=== PATIENT | male | born 1965 ===

== ENCOUNTER 2020-03-10 06:31 | Day surgery (SDC) | payer BC ==
[~2020-03-10 06:31] MED LIST: Lactated Ringers 1,000 ML IV SCH
[2020-03-10] MEDS ORDERED: fentaNYL 100 MCG/2 ML SDV ONE (07:13)
[2020-03-10] MEDS ORDERED: Propofol 200 MG/20 ML SDV ONE (07:13)
[2020-03-10] MEDS ORDERED: Ondansetron 4 MG/2 ML SDV ONE (07:13)
[2020-03-10] MEDS ORDERED: Midazolam 1 MG/ML 2 ML SDV ONE (07:13)
[2020-03-10] MEDS ORDERED: Lidocaine 2% 5 ML SDV ONE (07:13)
[2020-03-10] MEDS ORDERED: Glycopyrrolate 0.2 MG/ML SDV ONE (07:13)
[2020-03-10] MEDS ORDERED: Ketorolac 30 MG/ML SDV ONE (07:13)
[2020-03-10] MEDS ORDERED: Bupivacaine 0.5% 10 ML SDV ONE (07:14)
--- NOTE | 2020-03-10 07:17 | PCM.PREANE ---
Preanesthetic Assessment - Anesthesia/Transfusion/Family Hx Anesthesia History: Prior Anesthesia Without Reaction Other Type of Anesthesia Reaction Comment: Denies any history of general anesthesia, just as used for Bunionectomies Transfusion History: No Prior Transfusion(s) - Review of Systems General: No Symptoms Pulmonary: No Symptoms Cardiovascular: No Symptoms Gastrointestinal: No Symptoms Neurological: No Symptoms Other: Reports: None - Physical Assessment NPO Status Date: 03/09/20 Vital Signs: Last Vital Signs Temp 97.9 F 03/10/20 06:40 Pulse 83 03/10/20 06:40 Resp 16 03/10/20 06:40 BP 131/91 H 03/10/20 06:40 Pulse Ox 93 L 03/10/20 06:40 Height: 6 ft 1 in Weight: 113.852 kg ASA Class: 2 Mental Status: Alert & Oriented x3 Airway Class: Mallampati = 2 Dentition: Reports: Normal Dentition ROM/Head Extension: Full Lungs: Clear to Auscultation, Normal Respiratory Effort Cardiovascular: Regular Rate, Regular Rhythm - Allergies Allergies/Adverse Reactions: Allergies Allergy/AdvReac Type Severity Reaction Status Date / Time No Known Allergies Allergy Verified 03/04/20 12:39 - Blood Blood Available: No - Anesthesia Plan Pre-Op Medication Ordered: None - Acknowledgements Anesthesia Type Planned: General Anesthesia Pt an Appropriate Candidate for the Planned Anesthesia: Yes Alternatives and Risks of Anesthesia Discussed w Pt/Guardian: Yes Pt/Guardian Understands and Agrees with Anesthesia Plan: Yes Additional Comments: PMH: dm2, htn, non smoker PLAN: ga/lma PreAnesthesia Questionnaire Cardiovascular History: Reports: High Cholesterol, Hypertension Gastrointestinal History: Reports: Diverticulosis, GERD Genitourinary History: Reports: Renal Calculus Other Genitourinary History: hx of passing 1 stone Psychiatric History: Reports: Depression Endocrine/Metabolic History: Reports: Diabetes, Type II, IDDM, Obesity/BMI 30+ - Past Surgical History Head Surgeries/Procedures: Reports: None GI Surgical History: Reports: Cholecystectomy, Colonoscopy Musculoskeletal Surgical History: Reports: Other (See Below) Other Musculoskeletal Surgeries/Procedures:: bilateral bunionectomies (has pins) - SUBSTANCE USE Smoking Status *Q: Never Smoker Tobacco Use Within Last Twelve Months: No Days Per Week of Alcohol Use: 1 Recreational Drug Use History: No - HOME MEDS Home Medications: Home Meds Citalopram [Citalopram HBr] 30 mg PO DAILY 05/07/14 [History] Testosterone Cypionate [Depo-Testosterone] 200 mg IM WEEKLY 05/07/14 [History] atorvaSTATin Calcium [Atorvastatin Calcium] 20 mg PO DAILY 05/07/14 [History] Anastrozole [Arimidex] 1 mg PO ASDIRECTED 03/04/20 [History] Empagliflozin [Jardiance] 25 mg PO DAILY 03/04/20 [History] Fenofibrate Nanocrystallized [Fenofibrate] 200 mg PO DAILY 03/04/20 [History] Losartan Potassium 75 mg PO QAM 03/04/20 [History] Omeprazole 20 mg PO ACBREAKFAST 03/04/20 [History] Ozempic 0.25 mg SQ WEEKLY 03/04/20 [History] metFORMIN HCl [Metformin HCl] 500 mg PO BIDMEALS 03/04/20 [History] - CURRENT (IN HOUSE) MEDS Current Meds: Current Medications Lactated Ringer's (Ringers, Lactated) 1,000 mls @ 100 mls/hr IV ASDIRECTED [facility] Last Admin: 03/10/20 07:03 Dose: 100 mls/hr Documented by: Cefazolin Sodium/Dextrose 2 gm (/ Premix) 50 mls @ 100 mls/hr IV [facility]
[2020-03-10] MEDS ORDERED: Bupivacaine 0.25% 10 ML SDV ONE (07:47)
[2020-03-10] MEDS ORDERED: ceFAZolin 2 GM in Premix Bag 1 BAG IV SCH (08:00)
--- NOTE | 2020-03-10 09:00 | PCM.OPNOTE ---
- General Post-Op/Procedure Note Date of Surgery/Procedure: 03/10/20 Operative Procedure(s): Right carpal tunnel release Findings: Right median nerve compression Pre Op Diagnosis: Right carpal tunnel syndrome Post-Op Diagnosis: Right carpal tunnel syndrome Anesthesia Technique: General LMA Primary Surgeon: Ousmane Brennan Wire Mesh Knitter: Mackenzie Hogue Reason Wire Mesh Knitter Was Necessary: Retraction Pathology: None EBL in mLs: 5 Complications: None Free Text/Narrative:: Patient has EMG documented right carpal tunnel syndrome and has failed non- operative management. We discussed the risks and benefits of carpal tunnel release and patient elected to proceed with surgery. All questions were answered. Patient was taken to the OR. After adequate general anesthesia, the patient remained in a supine position. A tourniquet was placed on the right rpoximal upper arm. The right upper extremity and hand were prepped and draped in the usual sterile manner. The hand elevated and the tourniquet inflated. The cardinal line was marked. A palmar incision extending from the wrist crease to the cardinal line was made with a scalpel. Subcutaneous tissue was incised with electrocautery. The palmar fascia was identified and a small incision was made with scissors. A freer elevator was placed under the transverse carpal ligament and the ligament incised with a scalpel under direct visualization. The median nerve was protected by the freer elevator. the palmar fascia was opened to the cardinal line. The fascia proximal to the wrist crease was isolated by spreading scissors above and below the fascia and the fascia was opened by pushing the scissors through the isolated fascia. The median nerve was completely decompressed. The wound was irrigated. Skin was closed with interrupted 3-0 horizontal mattress sutures. A sterile dressing was applied. Patient was accompanied to the PACU in stable condition. Pain medication: ibuprofen and acetaminophen VTE prophylaxis not indicated Prophylactic antibiotics not indicated post-operatively Restrictions: Non weight bearing right hand for 6 weeks, elevate hand, keep incision clean and dry.
--- NOTE | 2020-03-10 09:38 | PCM.POSTAN ---
POST ANESTHESIA ASSESSMENT - MENTAL STATUS Mental Status: Alert, Oriented - VITAL SIGNS Vital Signs: Last Vital Signs Temp 36.6 C 03/10/20 08:51 Pulse 82 03/10/20 09:32 Resp 11 L 03/10/20 09:32 BP 125/81 03/10/20 09:32 Pulse Ox 93 L 03/10/20 09:32 - RESPIRATORY Respiratory Status: Respiratory Rate WNL, Airway Patent, O2 Saturation Stable - CARDIOVASCULAR CV Status: Pulse Rate WNL, Blood Pressure Stable - GASTROINTESTINAL GI Status: No Symptoms - POST OP HYDRATION Hydration Status: Adequate & Stable
--- NOTE | 2020-03-10 10:29 | PCM48HPAN ---
Post Anesthesia Note - EVALUATION WITHIN 48HRS OF ANESTHETIC Vital Signs in Normal Range: Yes Patient Participated in Evaluation: Yes Respiratory Function Stable: Yes Airway Patent: Yes Cardiovascular Function Stable: Yes Hydration Status Stable: Yes Pain Control Satisfactory: Yes Nausea and Vomiting Control Satisfactory: Yes Mental Status Recovered: Yes Vital Signs: Last Vital Signs Temp 97.0 F 03/10/20 09:35 Pulse 84 03/10/20 10:05 Resp 14 03/10/20 10:05 BP 125/79 03/10/20 10:05 Pulse Ox 92 L 03/10/20 10:05
[2020-03-10 11:00] VITALS: BP 124/80; PULSE 72
== END 2020-03-10 10:40 | disposition home or self-care (01) ==
LOC: MW.SDS 06:31
PROVIDERS: ATTEND Orthopaedic Surgery
DX: G56.01 Carpal tunnel syndrome, right upper limb (principal); F41.9 Anxiety disorder, unspecified; F32.9 Major depressive disorder, single episode, unspecified; E11.9 Type 2 diabetes mellitus without complications; E78.5 Hyperlipidemia, unspecified; I10 Essential (primary) hypertension; E66.9 Obesity, unspecified; K21.9 Gastro-esophageal reflux disease without esophagitis; E78.00 Pure hypercholesterolemia, unspecified; Z79.899 Other long term (current) drug therapy; Z68.33 Body mass index [BMI] 33.0-33.9, adult; Z79.84 Long term (current) use of oral hypoglycemic drugs; Z87.891 Personal history of nicotine dependence
CPT/HCPCS: 64721; J1885; J2001; J2250; J2405; J2704; J3010; J3490; J7120